=== PATIENT | male | born 1950 | race Caucasian/White ===

== ENCOUNTER 2018-08-26 05:51 | Day surgery (SDC) | payer MEDICARE, OTHER ==
[~2018-08-26 05:51] MED LIST: SODIUM CHLORIDE 0.9% 1000ML 1,000 ML IV ONE
[2018-08-26] MEDS ORDERED: IRON1CAP32 PO (06:56)
[2018-08-26] MEDS ORDERED: BUPR100T13 PO (06:56)
[2018-08-26] MEDS ORDERED: LEVO5TAB13 PO (06:56)
[2018-08-26] MEDS ORDERED: NAPR-1023 PO (06:56)
[2018-08-26] MEDS ORDERED: PROPOFOL 10 MG/ML 20ML VIAL IV ONE (07:19)
[2018-08-26] MEDS ORDERED: PHENYLEPHRINE HCL 10 MG/ML 1ML VIAL IV ONE (07:23)
[2018-08-26 07:30] VITALS: BP 85/36
[2018-08-26 07:35] VITALS: BP 106/56
[2018-08-26 07:40] VITALS: BP 119/59
[2018-08-26 07:45] VITALS: BP 119/69
[2018-08-26 08:00] VITALS: BP 143/77
== END 2018-08-26 08:10 | disposition home or self-care (01) ==
LOC: DAH 05:51 → ENDO 05:51
PROVIDERS: ATTEND Internal Medicine
DX: K21.0 Gastro-esophageal reflux disease with esophagitis (principal); K44.9 Diaphragmatic hernia without obstruction or gangrene; K31.89 Other diseases of stomach and duodenum; Z98.0 Intestinal bypass and anastomosis status; Z98.890 Other specified postprocedural states; Z68.30 Body mass index [BMI] 30.0-30.9, adult; K29.50 Unspecified chronic gastritis without bleeding; K21.9 Gastro-esophageal reflux disease without esophagitis
CPT/HCPCS: 43239; 43249; 88305; A4606; J2370; J2704; J7030

== ENCOUNTER → 2018-10-21 | Outpatient (CLI) | payer MEDICARE ==
[~2018-10-21] MED LIST changes: +BUPR100T13 PO; +GADODIAMIDE 5 MMOL/10 ML VIAL 5 MMOL/10 ML VIAL IV ONE; +IRON1CAP32 PO; +LEVO5TAB13 PO; +NAPR-1023 PO; -SODIUM CHLORIDE 0.9% 1000ML 1,000 ML IV ONE
== END | disposition home or self-care (01) ==
LOC: RAH 13:29
PROVIDERS: ATTEND Physician Assistant Medical
DX: M50.20 Other cervical disc displacement, unspecified cervical region (principal); D17.79 Benign lipomatous neoplasm of other sites
CPT/HCPCS: 72156; A9579

== ENCOUNTER 2018-11-05 05:51 | Day surgery (SDC) | payer MEDICARE ==
[~2018-11-05] VITALS: Ht 170.2 cm; Wt 88.0 kg
[~2018-11-05 05:51] MED LIST changes: -GADODIAMIDE 5 MMOL/10 ML VIAL 5 MMOL/10 ML VIAL IV ONE; -IRON1CAP32 PO; -LEVO5TAB13 PO; -NAPR-1023 PO; +OMEP40CA37 PO; +SODIUM CHLORIDE 0.9% 1000ML 1,000 ML IV ONE
[2018-11-05 07:39] VITALS: BP 145/55
[2018-11-05 09:32] VITALS: BP 124/71
[2018-11-05 09:37] VITALS: BP 126/64
[2018-11-05 09:42] VITALS: BP 117/71
[2018-11-05 09:47] VITALS: BP 128/72
[2018-11-05 09:52] VITALS: BP 118/70
--- NOTE | 2018-11-05 10:00 | NUR ---
DC PT DC HOME VIA WC,NO DISTRESS NOTED. ACCOMPANIED BY SPOUSE, DC INSTRUCTIONS GIVEN TO PT SPOUSE EARLIER , INSTRUCTED TO F/U WITH DR. HAYES, CONTINUE HOME MEDS. PIV REMOVED EARLIER. PT DENIED ANY PAIN OR DISCOMFORTS.
== END 2018-11-05 10:00 | disposition home or self-care (01) ==
LOC: ENDO 05:51 → DAH 05:51 → ENDO 10:00
PROVIDERS: ATTEND Internal Medicine
DX: Z12.11 Encounter for screening for malignant neoplasm of colon (principal); K64.0 First degree hemorrhoids; K57.30 Diverticulosis of large intestine without perforation or abscess without bleeding; K63.5 Polyp of colon; K44.9 Diaphragmatic hernia without obstruction or gangrene; K21.9 Gastro-esophageal reflux disease without esophagitis; K22.8 Other specified diseases of esophagus; K31.89 Other diseases of stomach and duodenum; Z98.0 Intestinal bypass and anastomosis status; Z90.49 Acquired absence of other specified parts of digestive tract; Z98.890 Other specified postprocedural states; Z79.899 Other long term (current) drug therapy; K29.70 Gastritis, unspecified, without bleeding; Z86.010 Personal history of colon polyps
CPT/HCPCS: 43239; 43249; 45380; 88305; A4606; J7030

== ENCOUNTER 2019-11-09 05:34 | Day surgery (SDC) | payer MEDICARE ==
[~2019-11-09] VITALS: Ht 170.2 cm; Wt 90.7 kg
[~2019-11-09 05:34] MED LIST changes: +GABA600T10 PO; +OMEP40CA13 PO; -OMEP40CA37 PO; -SODIUM CHLORIDE 0.9% 1000ML 1,000 ML IV ONE; +TAMS-1 PO
[2019-11-09] MEDS ORDERED: SODIUM CHLORIDE 0.9% 1000ML 1,000 ML IV ONE (06:20)
[2019-11-09 06:30] VITALS: BP 121/69
[2019-11-09] MEDS ORDERED: PROPOFOL 10 MG/ML 20ML VIAL IV ONE (07:51)
[2019-11-09 07:55] VITALS: BP 107/62
[2019-11-09 08:00] VITALS: BP 117/66
[2019-11-09 08:05] VITALS: BP 120/70
[2019-11-09 08:10] VITALS: BP 125/74
== END 2019-11-09 08:30 | disposition home or self-care (01) ==
LOC: DAH 05:34
PROVIDERS: ATTEND Internal Medicine
DX: K22.2 Esophageal obstruction (principal); Z11.59 Encounter for screening for other viral diseases; K20.0 Eosinophilic esophagitis; K44.9 Diaphragmatic hernia without obstruction or gangrene; K31.89 Other diseases of stomach and duodenum; Z98.0 Intestinal bypass and anastomosis status; Z88.5 Allergy status to narcotic agent; Z91.048 Other nonmedicinal substance allergy status; Z79.899 Other long term (current) drug therapy; Z82.49 Family history of ischemic heart disease and other diseases of the circulatory system; Z90.49 Acquired absence of other specified parts of digestive tract; Z98.890 Other specified postprocedural states; Z86.010 Personal history of colon polyps
CPT/HCPCS: 36415; 43239; 43249; 88305; 88342; A4215 ×2; A4221; A4222; A4223; A4606; A4620; A4657; A4663; J2704; J7030; U0003; 43200

== ENCOUNTER → 2021-01-08 | Outpatient (CLI) | payer MEDICARE ==
[~2021-01-08] MED LIST changes: -OMEP40CA13 PO; +OMEP40CA21 PO
== END | disposition home or self-care (01) ==
LOC: CANPRECLI → OIH 10:00
PROVIDERS: ATTEND Internal Medicine Gastroenterology
DX: K57.90 Diverticulosis of intestine, part unspecified, without perforation or abscess without bleeding (principal); M51.37 Other intervertebral disc degeneration, lumbosacral region; Z90.49 Acquired absence of other specified parts of digestive tract
CPT/HCPCS: 74176